=== PATIENT | female | born 1970 | race Caucasian/White ===

== ENCOUNTER 2022-03-29 01:12 | Emergency (ER) | payer BC ==
[~2022-03-29] VITALS: Ht 172.7 cm; Wt 73.2 kg
[2022-03-29 01:23] VITALS: BP 154/97
== END 2022-03-29 03:17 | disposition left against medical advice (07) ==
LOC: ER 01:12
DX: Z53.21 Procedure and treatment not carried out due to patient leaving prior to being seen by health care provider (principal); I49.9 Cardiac arrhythmia, unspecified
CPT/HCPCS: 93005